=== PATIENT | female | born 1960 | race Caucasian/White ===

== ENCOUNTER 2017-04-10 19:57 | Emergency (ER) | payer OTHER ==
[~2017-04-10] VITALS: Ht 180.3 cm; Wt 118.9 kg
[2017-04-10] MEDS ORDERED: MYCO250C PO (20:41)
[2017-04-10] MEDS ORDERED: TACR1CAP4 PO (20:41)
[2017-04-10] MEDS ORDERED: SODIUM CHLORIDE FLUSH 10ML SYR IVF ONE (21:00)
[2017-04-10] MEDS ORDERED: ONDANSETRON 2MG/ML, 2ML IVPush ONE (21:00)
[2017-04-10] MEDS ORDERED: PROPOFOL 10 MG/ML, 20ML IVPush ONE (21:00)
[2017-04-10] MEDS ORDERED: ONDANSETRON 2MG/ML, 2ML ONE (21:49)
[2017-04-10] MEDS ORDERED: HYDROmorphone 2 MG/ML, 1ML ONE ×2 (21:49→23:09)
[2017-04-10] MEDS: HYDROmorphone 1 MG/ML, 1ML IVPush PRN ×2 (21:56→23:24)
[2017-04-10] MEDS ORDERED: PROPOFOL 10 MG/ML, 20ML ONE ×2 (22:09→22:20)
[2017-04-11] MEDS ORDERED: HYDROcodone/APAP 5/325 TABLET ONE (00:21)
[2017-04-11] MEDS ORDERED: HYDROcodone/APAP 5/325 TABLET PO ONE (00:30)
[2017-04-11] MEDS ORDERED: PROPOFOL 10 MG/ML, 20ML IVPush ONE (00:30)
[2017-04-11 00:53] VITALS: BP 160/90
== END 2017-04-11 00:57 | disposition home or self-care (01) ==
LOC: ED 23:59
DX: S52.572A Other intraarticular fracture of lower end of left radius, initial encounter for closed fracture (principal); W01.0XXA Fall on same level from slipping, tripping and stumbling without subsequent striking against object, initial encounter; Y93.89 Activity, other specified; Y92.098 Other place in other non-institutional residence as the place of occurrence of the external cause; Y99.8 Other external cause status; Z94.0 Kidney transplant status
CPT/HCPCS: 25605; 73060; 73100; 73110; 96374; 96375; 96376; 99152; 99153; 99284; J1170; J2405; J2704

== ENCOUNTER → 2017-04-13 | Outpatient (CLI) | payer OTHER ==
[~2017-04-13] MED LIST: MYCO250C PO; TACR1CAP4 PO
== END | disposition home or self-care (01) ==
LOC: RAD 09:35
PROVIDERS: ATTEND Physician Assistant
DX: S52.592A Other fractures of lower end of left radius, initial encounter for closed fracture (principal); X58.XXXA Exposure to other specified factors, initial encounter; Y93.89 Activity, other specified; Y92.89 Other specified places as the place of occurrence of the external cause; Y99.8 Other external cause status

== ENCOUNTER 2018-04-06 15:13 | Outpatient (CLI) | payer OTHER ==
[2018-04-06] MEDS ORDERED: TACR1CAP4 PO ×2 (15:54)
[2018-04-06] MEDS ORDERED: MYCO500T PO (15:54)
[2018-04-06] MEDS ORDERED: VITA1CAP5 PO (15:56)
[2018-04-06] MEDS ORDERED: PAPA1TAB8 PO (15:56)
[2018-04-06] MEDS ORDERED: MAGNESIUM PO (15:56)
== END 2018-04-06 23:59 | disposition home or self-care (01) ==
LOC: STAR 15:13
PROVIDERS: ATTEND Surgery
DX: Z02.9 Encounter for administrative examinations, unspecified (principal)

== ENCOUNTER 2018-04-13 07:30 | Day surgery (SDC) | payer OTHER ==
[2018-04-06 15:56] VITALS: BP 144/87
[~2018-04-13] VITALS: Ht 180.3 cm; Wt 112.3 kg
[~2018-04-13 07:30] MED LIST changes: +BUPIVACAINE/PF-EPI 0.5% 1:200K ONE; +ISOSULFAN BLUE 10 MG/ML, 5ML IV ONE; +MAGNESIUM PO; +MYCO500T PO; +PAPA1TAB8 PO; +VITA1CAP5 PO
[2018-04-13] MEDS ORDERED: LACTATED RINGERS 1,000 ML IV SCH (07:58)
[2018-04-13] MEDS ORDERED: ONDANSETRON ODT 8 MG PO ONE (08:00)
[2018-04-13] MEDS ORDERED: SCOPOLAMINE PATCH, 1.5MG PATCH.TD72 TD ONE (08:00)
[2018-04-13] MEDS ORDERED: GABAPENTIN 300 MG CAPSULE PO ONE (08:00)
[2018-04-13] MEDS ORDERED: ACETAMINOPHEN 500 MG TABLET PO ONE (08:00)
[2018-04-13] MEDS ORDERED: FENTANYL PF 250 MCG/5ML ONE (08:37)
[2018-04-13] MEDS ORDERED: MIDAZOLAM 1 MG/ML, 2ML ONE (08:37)
[2018-04-13] MEDS ORDERED: DEXAMETHASONE 4 MG/ML, 1ML ONE (08:52)
[2018-04-13] MEDS ORDERED: CEFAZOLIN 1,000 MG ONE (08:52)
[2018-04-13] MEDS ORDERED: PROPOFOL 10 MG/ML, 20ML ONE (08:52)
[2018-04-13] MEDS ORDERED: SUCCINYLCHOLINE 20 MG/ML, 10ML ONE (08:52)
[2018-04-13] MEDS ORDERED: ROCURONIUM 10 MG/ML,10ML ONE (08:52)
[2018-04-13] MEDS ORDERED: PROMETHAZINE 25 MG/ML, 1ML IV PRN (09:30)
[2018-04-13] MEDS ORDERED: OXYcodone 5 MG/5 ML ORAL.SOL UDC PO PRN (09:30)
[2018-04-13] MEDS ORDERED: ONDANSETRON ODT 8 MG PO PRN (09:30)
[2018-04-13] MEDS ORDERED: ONDANSETRON 2MG/ML, 2ML IV PRN (09:30)
[2018-04-13] MEDS ORDERED: HYDROmorphone 2 MG/ML, 1ML IVPush PRN (09:30)
[2018-04-13] MEDS ORDERED: FENTANYL PF 100 MCG/2ML IV PRN (09:30)
[2018-04-13] MEDS ORDERED: OXYcodone 5 MG/5 ML ORAL.SOL UDC ONE (10:38)
[2018-04-13] MEDS ORDERED: FENTANYL PF 100 MCG/2ML ONE (10:38)
[2018-04-13] MEDS ORDERED: LORazepam 2 MG/ML, 1ML ONE (11:05)
[2018-04-13] MEDS: LORazepam 2 MG/ML, 1ML IVPush PRN ×2 (11:09→11:16)
[2018-04-13] MEDS ORDERED: LABETALOL 5MG/ML, 20ML IVPush ONE (12:00)
== END 2018-04-13 14:40 | disposition home or self-care (01) ==
LOC: OUT 07:30 → EDSTATUS 10:00 → OUT 14:40
PROVIDERS: ATTEND Surgery
DX: D05.11 Intraductal carcinoma in situ of right breast (principal); R59.1 Generalized enlarged lymph nodes; F41.9 Anxiety disorder, unspecified; I10 Essential (primary) hypertension; Z88.1 Allergy status to other antibiotic agents; Z88.8 Allergy status to other drugs, medicaments and biological substances
CPT/HCPCS: 19301; 38525; 38792; 88305; 88307; 88329; 88333; 88334; A9541; J0330; J0690; J1100; J2060; J2250; J2704; J3010; J7120; Q0162

== ENCOUNTER 2018-05-05 09:29 | Outpatient (CLI) | payer OTHER ==
[~2018-05-05 09:29] MED LIST changes: -BUPIVACAINE/PF-EPI 0.5% 1:200K ONE; -ISOSULFAN BLUE 10 MG/ML, 5ML IV ONE
== END 2018-05-05 23:59 | disposition home or self-care (01) ==
LOC: ROC 09:29
PROVIDERS: ATTEND Radiology Radiation Oncology
DX: C50.811 Malignant neoplasm of overlapping sites of right female breast (principal)
CPT/HCPCS: 99214; G0463

== ENCOUNTER 2018-05-16 07:40 | Outpatient (CLI) | payer OTHER | END 2018-05-16 23:59 | disposition home or self-care (01) | LOC: ROC 07:40 | PROVIDERS: ATTEND Radiology Radiation Oncology | DX: Z02.9 Encounter for administrative examinations, unspecified (principal) ==

== ENCOUNTER 2018-07-05 09:52 | Outpatient (CLI) | payer OTHER | END 2018-07-05 23:59 | disposition home or self-care (01) | LOC: ROC 09:52 | PROVIDERS: ATTEND Radiology Radiation Oncology | DX: C50.411 Malignant neoplasm of upper-outer quadrant of right female breast (principal) | CPT/HCPCS: 99212; G0463 ==

== ENCOUNTER 2018-07-19 08:41 | Outpatient (CLI) | payer OTHER | END 2018-07-19 23:59 | disposition home or self-care (01) | LOC: ROC 08:41 | PROVIDERS: ATTEND Radiology Radiation Oncology | DX: C50.411 Malignant neoplasm of upper-outer quadrant of right female breast (principal) | CPT/HCPCS: 99213; G0463 ==

== ENCOUNTER → 2018-07-24 | Outpatient (CLI) | payer OTHER | END | disposition home or self-care (01) | LOC: CFH 09:48 | PROVIDERS: ATTEND Internal Medicine Hematology & Oncology | DX: M85.89 Other specified disorders of bone density and structure, multiple sites (principal); N95.9 Unspecified menopausal and perimenopausal disorder; C50.411 Malignant neoplasm of upper-outer quadrant of right female breast | CPT/HCPCS: 77080 ==

== ENCOUNTER 2018-09-21 14:34 | Outpatient (CLI) | payer OTHER | END 2018-09-21 23:59 | disposition home or self-care (01) | LOC: CFH 14:34 | PROVIDERS: ATTEND Radiology Radiation Oncology | DX: C50.411 Malignant neoplasm of upper-outer quadrant of right female breast (principal) | CPT/HCPCS: 77066; G0279 ==

== ENCOUNTER → 2019-09-27 | Outpatient (CLI) | payer OTHER ==
[~2019-09-27] MED LIST changes: -TACR1CAP4 PO; +TACR1CAP5 PO
== END | disposition home or self-care (01) ==
LOC: CFH 14:58
PROVIDERS: ATTEND Radiology Radiation Oncology
DX: Z12.31 Encounter for screening mammogram for malignant neoplasm of breast (principal); Z85.3 Personal history of malignant neoplasm of breast
CPT/HCPCS: 77063; 77067

== ENCOUNTER → 2020-10-02 | Outpatient (CLI) | payer OTHER | END | disposition home or self-care (01) | LOC: CFH 09:48 | PROVIDERS: ATTEND Internal Medicine Hematology & Oncology | DX: Z12.31 Encounter for screening mammogram for malignant neoplasm of breast (principal); C50.411 Malignant neoplasm of upper-outer quadrant of right female breast; M85.88 Other specified disorders of bone density and structure, other site | CPT/HCPCS: 77063; 77067; 77080 ==